=== PATIENT | male | born 2000 | race Caucasian/White ===

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

== ENCOUNTER 2020-03-10 13:28 | Emergency (ER) | payer OTHER ==
[~2020-03-10] VITALS: Ht 177.8 cm; Wt 68.1 kg
[2020-03-10 13:44] VITALS: BP 114/65
--- NOTE | 2020-03-10 13:45 | PHYS DOC ---
Past History Past Medical History: No Pertinent History Past Surgical History: No Surgical History Smoking: Non-smoker Alcohol Use: None Drug Use: None General Adult EDM: Chief Complaint: LOWER EXT PAIN HPI: HPI: Healthy 20-year-old male who presents for evaluation of inversion injury of the right ankle that occurred yesterday while playing basketball. The patient jumped in the air, and landed on his right ankle in the inverted position ("rolled my ankle"). He reports pain at the lateral malleolus. There was associated swelling, which improved with local ice. He self applied a right ankle splint. He presents today with ongoing ankle pain. No distal weakness or paresthesia. No other areas of pain or injury. Review of Systems: Review of Systems: General: No fevers, chills. CV: No chest pain, edema. Resp: No shortness of breath, cough. GI: No abdominal pain, nausea, vomiting. Neuro: No headache, dizziness, weakness, or paresthesia. MSK: No back pain. Reports arthralgia. Skin: No acute rash, lesion. Remainder of systems reviewed and otherwise negative unless specified. Heart Score: Risk Factors: Risk Factors: DM, Current or recent (<one month) smoker, HTN, HLP, family history of CAD, obesity. Risk Scores: Score 0 - 3: 2.5% MACE over next 6 weeks - Discharge Home Score 4 - 6: 20.3% MACE over next 6 weeks - Admit for Clinical Observation Score 7 - 10: 72.7% MACE over next 6 weeks - Early Invasive Strategies Allergies: Allergies: Allergies Coded Allergies Type Severity Reaction Last Updated Verified No Known Drug Allergies 12/22/13 No Physical Exam: PE: Gen: NAD. Head: NC/AT Eyes: No scleral icterus. No conjunctival injection. ENT: MMM. Posterior OP clear. Neck: Supple. NT. CV: RRR. Peripheral pulses intact. Resp: CTAB. MSK: No peripheral cyanosis. No edema. Mild nonfocal tenderness without appreciable swelling, open lesions, or rash of the right lateral malleolus. Tenderness with passive inversion of the right ankle. Distal toes of the right foot are warm and well-perfused with good active range of motion. Neuro: Awake and alert. No paresthesia. Skin: Warm. Dry. Psych: Appropriate mood & affect. EKG: EKG: [] Radiology/Procedures: Radiology/Procedures: [] Course & Med Decision Making: Course & Med Decision Making Pertinent Labs and Imaging studies reviewed. (See chart for details) In summary, healthy 20-year-old male who presents for evaluation of inversion injury of the right ankle that occurred yesterday while playing basketball. Neurovascularly intact distally. Large unremarkable physical examination other than some mild palpable tenderness around the right lateral malleolus without overlying skin or soft tissue changes. Plain films the right ankle were negative for acute osseous abnormalities per my review. The patient is well-appearing and nontoxic. We'll have the patient to utilize his brace with outpatient ortho follow-up. Tylenol or Motrin as needed for pain. Return precautions given. Dragon Disclaimer: Dragon Disclaimer: This electronic medical record was generated, in whole or in part, using a voice recognition dictation system. Departure Departure: Impression: Primary Impression: Right ankle sprain Qualified Codes: S93.401A - Sprain of unspecified ligament of right ankle, initial encounter Disposition: HOME, SELF-CARE Condition: STABLE Referrals: PCP,NO (PCP) Patient Instructions: Ankle Sprain, [id number] Additional Instructions: Follow up with orthopedics (option listed below) if you have continued pain gr eater than 5 days. Take tylenol or motrin as needed for pain. Keep the right leg elevated when at rest. Utilize your ankle brace. [id number] [facility], [address] [place] [address] JADA ROJAS DO Mar 10, 2020 13:45
--- NOTE | 2020-03-10 13:57 | RAD ---
ANKLE RIGHT 3V History: Lateral ankle pain Comparison: May 08, 2017 Findings: 3 views of the right ankle are submitted. There is again some bony irregularity of the medial talus along the articular surface. No acute fracture is identified. Impression: 1. There is similar bony irregularity at the articular surface of the medial talus likely due to osteochondral defect. Electronically signed by: Fito Tran MD (03/10/2020 1:54 PM) [id number]
== END 2020-03-10 14:10 | disposition home or self-care (01) ==
LOC: ER 13:28
DX: S93.401A Sprain of unspecified ligament of right ankle, initial encounter (principal); X50.9XXA Other and unspecified overexertion or strenuous movements or postures, initial encounter; Y93.67 Activity, basketball; Y92.89 Other specified places as the place of occurrence of the external cause; Y99.8 Other external cause status
CPT/HCPCS: 73610; 99283